=== PATIENT | female | born 1990 | race Two or more races ===

== ENCOUNTER 2020-11-26 23:08 | Emergency (ER) | payer MEDICAID ==
[~2020-11-26] VITALS: Ht 157.5 cm; Wt 86.0 kg
[2020-11-26] MEDS ORDERED: RABIES VACCINE /PF 2.5 UNITS IM-VACC STA (23:40)
[2020-11-27] MEDS ORDERED: RABIES IMMUNE GLOBULIN/PF 300 UNITS/ML,1ML IM ONE
[2020-11-27] MEDS ORDERED: DIPH,PERTUSS(ACELL),TET VAC/PF 0.5 ML IM-VACC ONE
[2020-11-27] MEDS ORDERED: BACITRACIN ZINC OINT 500U/GM, 0.9 GM ONE (00:18)
[2020-11-27 01:51] VITALS: BP 132/78
== END 2020-11-27 01:55 | disposition home or self-care (01) ==
LOC: ED 23:45
DX: S41.151A Open bite of right upper arm, initial encounter (principal); L03.113 Cellulitis of right upper limb; W54.0XXA Bitten by dog, initial encounter; Y93.01 Activity, walking, marching and hiking; Y92.410 Unspecified street and highway as the place of occurrence of the external cause; Y99.8 Other external cause status
CPT/HCPCS: 90375; 90471; 90675; 90715; 96372